=== PATIENT | female | born 1960 | race Caucasian/White ===

== ENCOUNTER 2021-04-10 19:19 | Emergency (ER) | payer MEDICAID ==
[~2021-04-10] VITALS: Ht 172.7 cm; Wt 81.4 kg
[2021-04-10] MEDS ORDERED: OMEP10 PO (19:32)
[2021-04-10] MEDS ORDERED: ATEN-73 PO (19:32)
[2021-04-10] MEDS ORDERED: ASPI-1450 PO (19:32)
[2021-04-10] MEDS ORDERED: ACETAMINOPHEN 500 MG TABLET PO ONE (20:00)
[2021-04-10 21:26] LABS: BASOPHILS % (AUTO) 0.3 % (0.0-2.0); EOSINOPHILS % (AUTO) 0.8 % (1.0-6.0); HEMATOCRIT 28.8 % (36-46); HEMOGLOBIN 9.8 g/dL (12.0-16.0); LYMPHOCYTES # (AUTO) 3.5 K/uL (1.0-4.8); LYMPHOCYTES % (AUTO) 42.4 % (22.0-44.0); MEAN CORPUSCULAR HEMOGLOBIN 28.8 pg (26.0-34.0); MEAN CORPUSCULAR VOLUME 85 fL (80-100); MONOCYTES # (AUTO) 0.8 K/uL (0.1-1.0); MONOCYTES % (AUTO) 9.1 % (2.0-9.0); NEUTROPHILS # (AUTO) 3.9 K/uL (1.8-7.7); NEUTROPHILS % (AUTO) 47.4 % (40.0-70.0); PLATELET COUNT (AUTO) 192 K/uL (150-450); RED BLOOD CELL COUNT(AUTO) 3.39 MIL/uL (4.00-5.20)
[2021-04-10 21:30] VITALS: BP 131/60
[2021-04-10 21:35] LABS: CALCIUM, TOTAL 8.3 mg/dL (8.8-10.5); CREATININE 1.06 mg/dL (0.60-1.30); POTASSIUM 3.7 mmol/L (3.5-5.1)
[2021-04-10 21:41] LABS: ALBUMIN 3.2 g/dL (3.4-5.0); BILIRUBIN,TOTAL 1.9 mg/dL (0.1-1.0)
== END 2021-04-10 23:30 | disposition home or self-care (01) ==
LOC: EMS 19:19
DX: R10.30 Lower abdominal pain, unspecified (principal); R11.0 Nausea; R50.9 Fever, unspecified; Z20.822 Contact with and (suspected) exposure to COVID-19; I25.10 Atherosclerotic heart disease of native coronary artery without angina pectoris
CPT/HCPCS: 36415; 71045; 74176; 80053; 81002; 83690; 85025; 99285; U0003